=== PATIENT | female | born 1935 ===

== ENCOUNTER → 2017-11-01 | Outpatient (CLI) | payer MEDICARE ==
[~2017-11-01] MED LIST: ALBU8.5H IH; ALEN70TA43 PO; ASPI-1471 PO; BISA10SU62 RC; CA C1TAB6 PO; CA C1TAB9 PO; CALC-515 PO; ENOX40DI9 SQ; FAMO-67 PO; FOLI-68 PO; FURO-45 PO; GABA-549 PO; HYDR-4305 PO; HYDR-4309 PO; L. A1CAP5 PO; LEVO75TA73 PO; MAGN400C PO; METO25TA91 PO; MULT1CAP59 PO; ONDA4TAB PO; SERT-184 PO; UMEC1DIS PO; VANC125C3 PO
[2017-11-01 15:51] LABS: PLATELET COUNT, AUTOMATED 224 K/uL (150-450)
== END ==
LOC: LAB 15:26
PROVIDERS: ATTEND Internal Medicine
DX: I48.91 Unspecified atrial fibrillation (principal); Z86.79 Personal history of other diseases of the circulatory system; E03.9 Hypothyroidism, unspecified; E87.5 Hyperkalemia
CPT/HCPCS: 36415; 82040; 82247; 82310; 82374; 82435; 82565; 82947; 83735; 84075; 84132; 84155; 84295; 84443; 84450; 84460; 84520; 85025

== ENCOUNTER → 2017-11-07 | Outpatient (CLI) | payer MEDICARE ==
[2017-11-07 10:50] LABS: PLATELET COUNT, AUTOMATED 196 K/uL (150-450)
== END ==
LOC: LAB 10:33
PROVIDERS: ATTEND Internal Medicine
DX: J44.9 Chronic obstructive pulmonary disease, unspecified (principal); E87.5 Hyperkalemia; I48.91 Unspecified atrial fibrillation
CPT/HCPCS: 36415; 82040; 82247; 82310; 82374; 82435; 82565; 82947; 84075; 84132; 84155; 84295; 84450; 84460; 84520; 85025

== ENCOUNTER → 2017-11-27 | Outpatient (CLI) | payer MEDICARE ==
[~2017-11-27] MED LIST changes: +FLU180SY11 IM; +PNEU0.5D3 IM
== END ==
LOC: LAB 14:18
PROVIDERS: ATTEND Internal Medicine
DX: E03.9 Hypothyroidism, unspecified (principal); Z85.3 Personal history of malignant neoplasm of breast; J44.9 Chronic obstructive pulmonary disease, unspecified; M81.0 Age-related osteoporosis without current pathological fracture
CPT/HCPCS: 36415; 82040; 82247; 82306; 82310; 82374; 82435; 82565; 82947; 84075; 84132; 84155; 84295; 84450; 84460; 84520

== ENCOUNTER → 2017-12-04 | Outpatient (CLI) | payer MEDICARE ==
--- NOTE | 2017-12-04 10:45 | RADIOLOGY IMAGING REPORT ---
FACILITY: [facility] PATIENT NAME: Lizabeth Whiting : 1935 MR: [id number] V: [id number] EXAM DATE: ORDERING PHYSICIAN: RAMOS HERNANDEZ TECHNOLOGIST: Location: [facility] [place] Patient: Lizabeth Whiting : 1935 Visit/Account:[id number] Date of Sevice: 12/04/2017 KIDNEYS HISTORY: see dx COMPARISON: None. FINDINGS: Kidneys: Right kidney- 8.2 cm in length with a simple cyst in the lower pole, 2 cm. There is no suspicious ma ss, calcification, or hydronephrosis.. Left kidney- 8.7 cm in length with a simple cyst in the lower pole, 1.1 cm. There is no suspicious m ass, calcification, or hydronephrosis.. Resistive index bilaterally is slightly elevated on the right side, 0.88. Resistive index on the lef t is normal. Uniform and symmetric blood flow in each kidney by Doppler ultrasound. Bladder: Normal, prevoid volume 53 mL, postvoid volume 1 mL.. Abdominal aorta and IVC: Patent by Doppler ultrasound. IMPRESSION: 1. Benign cyst in both right and left kidney. Normal cortical thickness is seen bilaterally, and no evidence of hydronephrosis. 2. Mild elevated resistive index in the right kidney. This can be seen with chronic medical renal d isease. Left kidney demonstrates normal resistive index. Report Dictated By: Preet Norris at 12/04/2017 10:37 AM Report E-Signed By: Preet Norris at 12/04/2017 10:40 AM WSN:[email or web address]
== END ==
LOC: US 00:32
PROVIDERS: ATTEND Internal Medicine
DX: N28.1 Cyst of kidney, acquired (principal)
CPT/HCPCS: 76705

== ENCOUNTER → 2017-12-18 | Outpatient (CLI) | payer MEDICARE ==
[~2017-12-18] MED LIST changes: -HYDR-4305 PO; -HYDR-4309 PO; +HYDR-627 PO; +HYDR-653 PO
== END ==
LOC: LAB 13:58
PROVIDERS: ATTEND Internal Medicine
DX: N17.9 Acute kidney failure, unspecified (principal)
CPT/HCPCS: 36415; 81001; 82040; 82247; 82310; 82374; 82435; 82565; 82947; 84075; 84132; 84155; 84295; 84450; 84460; 84520

== ENCOUNTER → 2017-12-20 | Outpatient (CLI) | payer MEDICARE | LOC: RESP 00:18 | PROVIDERS: ATTEND Physician Assistant Medical | DX: R41.3 Other amnesia (principal); Z86.19 Personal history of other infectious and parasitic diseases | CPT/HCPCS: 95819 ==

== ENCOUNTER 2017-12-21 15:09 | Emergency (ER) | payer MEDICARE ==
[2017-12-21] MEDS ORDERED: NS(*) 0.9% 1000 ML BAG 1,000 ML IV ONE (15:25)
--- NOTE | 2017-12-21 15:31 | ER Report ---
History and Physical Time Seen By MD: 15:03 Hx. of Stated Complaint: PT REPORTS HAVING DIARRHEA LAST NIGHT. REPORTS THAT SHE INJURED HER RIGHT HIP LAST NIGHT AT WELL. HAD RIGHT HIP REPLACEMENT IN AUGUST OF 2017 HPI/ROS CHIEF COMPLAINT: DIARRHEA, NEAR SYNCOPAL HISTORY OF PRESENT ILLNESS: Pt is here for evaluation of diarrhea, fever, weakness and near syncopal episode. Pt was fine yesterday but last night started with diarrhea and fever. Pt has dementia. Pts daughter found her at 12am in the shower with her shirt on and water running. Pt had had an episode of diarrhea. Daughter cleaned her up and at 6am had another episode and when the daughter had her up to clean she almost passed out. Daughter caught her on her way down. Did not hit her had. landed on right hip and c/o of pain. 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 Pt has hx of c.diff. no recent abx. pt feels weak. no chest pain. some abd cramping. no dysuria. no known sick contacts but was at the neurology office yesterday. REVIEW OF SYSTEMS: Constitutional: +fever, no chills. Eyes: No discharge. ENT: No sore throat. Cardiovascular: No chest pain, no palpitations. Respiratory: No cough, no shortness of breath. Gastrointestinal: + abdominal pain, + diarrhea no vomiting. Genitourinary: No hematuria. Musculoskeletal: No back pain. Skin: No rashes. Neurological: No headache. Allergies: Coded Allergies: No Known Drug Allergies (Unverified , 12/21/17) Home Meds Reported Medications Calcium/Magnesium (CALCIUM MAGNESIUM TABLET) 1 Each Tablet, 1 EACH PO 11/01/17 L. Acidophilus/Bifid. Animalis (TRUNATURE DIGESTIVE PROBIOTIC) 1 Each Capsule, 1 EACH PO BID, CAPSULE 11/01/17 Aspirin (ASPIR 81) 81 Mg Tablet.dr, 1 TAB PO QDAY, TAB 11/01/17 Albuterol Sulfate 90 Mcg/Act (PROAIR HFA 90 MCG/ACT) 8.5 Gm Hfa.aer.ad, 1-2 PUFF IH 3-4XD, INHALER 11/01/17 Umeclidinium Brm/Vilanterol Tr (Anoro Ellipta 62.5-25 Mcg INH) 1 Each Disk.w.dev, PO QDAY 11/01/17 Sertraline Hcl (SERTRALINE HCL) 50 Mg Tablet, 1 TAB PO QDAY, TAB 11/01/17 Multivitamin (MULTIVITAMINS) 1 Each Capsule, 1 EACH PO QDAY, CAPSULE 11/01/17 Levothyroxine Sodium (LEVOTHYROXINE SODIUM) 75 Mcg Tablet, 75 MCG PO HS, #3 TAB 11/01/17 Folic Acid (FOLIC ACID) 1 Mg Tablet, 1 MG PO QDAY, TAB 11/01/17 Famotidine (FAMOTIDINE) 20 Mg Tablet, 20 MG PO QDAY, TAB 11/01/17 Alendronate Sodium (FOSAMAX) 70 Mg Tablet, 70 MG PO QWK, TAB 11/01/17 Gabapentin (GABAPENTIN) 300 Mg Capsule, 300 MG PO BID, CAPSULE 11/01/17 Past Medical/Surgical History pmhx: afib, copd, sleep apnea, post polio syndrome, breast ca, skin ca Pshx: appy, hyster, lumpectomy Reviewed Nurses Notes: Yes Smoking Status: Former Smoker Hx Substance Use Disorder: No Hx Alcohol Use: No Constitutional Vital Sign - Last 24 Hours 12/21/17 12/21/17 15:16 15:40 Temp 98.5 100.3 Pulse 65 Resp 20 B/P (MAP) 118/51 Pulse Ox 95 O2 Delivery Nasal Cannula Physical Exam General Appearance: The patient is alert, has no immediate need for airway protection and no signs of toxicity. Eyes: Pupils equal and round no pallor or injection, EOMI ENT: no pharyngeal erythema or exudates, Mucous membranes are moist Respiratory: There are no retractions, lungs are clear to auscultation. Cardiovascular: Regular rate and rhythm. pulses are equal and symmetrical Gastrointestinal: Abdomen is soft and non tender, no masses, bowel sounds normal, no guarding, no rigidity or rebound Neurological: Cranial nerves II-XII grossly intact, no sensory or motor loss Skin: Warm and dry, no rashes. Musculoskeletal: Neck is supple non tender, no vertebral tenderness Extremities are nontender, non swollen and have full range of motion. DIFFERENTIAL DIAGNOSIS: After history and physical exam differential diagnosis was considered for dehydration, electrolyte abnl, colitis, infection diarrhea, gastroenteritis Medical Decision Making Data Points Result Diagram: 12/21/17 1520 12/21/17 1520 Laboratory Hematology Test 12/21/17 15:12/21/17 15:40 Red Blood Count 4.26 M/uL (4.17-5.56) Mean Corpuscular Volume 86.0 fL (80.0-96.0) Mean Corpuscular Hemoglobin 28.4 pg (26.0-33.0) Mean Corpuscular Hemoglobin Concent 33.1 g/dL (32.0-36.0) Red Cell Distribution Width 15.0 % (11.5-14.5) Mean Platelet Volume 7.8 fL (7.2-11.1) Neutrophils (%) (Auto) 84.0 % (39.4-72.5) Lymphocytes (%) (Auto) 8.1 % (17.6-49.6) Monocytes (%) (Auto) 6.8 % (4.1-12.4) Eosinophils (%) (Auto) 0.7 % (0.4-6.7) Basophils (%) (Auto) 0.4 % (0.3-1.4) Nucleated RBC Relative Count (auto) 0.0 /100WBC Neutrophils # (Auto) 5.0 K/uL (2.0-7.4) Lymphocytes # (Auto) 0.5 K/uL (1.3-3.6) Monocytes # (Auto) 0.4 K/uL (0.3-1.0) Eosinophils # (Auto) 0.0 K/uL (0.0-0.5) Basophils # (Auto) 0.0 K/uL (0.0-0.1) Nucleated RBC Absolute Count (auto) 0.00 K/uL Sodium Level 143 mmol/L (137-145) Potassium Level 3.8 mmol/L (3.5-5.0) Chloride Level 106 mmol/L (98-107) Carbon Dioxide Level 26 mmol/L (22-31) Blood Urea Nitrogen 41 mg/dl (7-18) Creatinine 1.50 mg/dl (0.52-1.04) Glomerular Filtration Rate Calc 33.3 Random Glucose 115 mg/dl (75-110) Calcium Level 9.6 mg/dl (8.4-10.2) Total Bilirubin 0.3 mg/dl (0.2-1.3) Aspartate Amino Transf (AST/SGOT) 26 U/L (0-35) Alanine Aminotransferase (ALT/SGPT) 20 U/L (0-56) Alkaline Phosphatase 51 U/L (0-126) Total Protein 6.9 g/dl (6.3-8.2) Albumin 4.1 g/dl (3.5-5.0) Urine Color Yellow Urine Clarity Slightly-cloudy Urine pH 5.0 pH (4.8-9.5) Urine Specific [place] 1.017 Urine Protein Negative mg/dL (NEGATIVE) Urine Glucose (UA) Negative mg/dL (NEGATIVE) Urine Ketones Negative mg/dL (NEGATIVE) Urine Blood Negative (NEGATIVE) Urine Nitrite Negative (NEGATIVE) Urine Bilirubin Negative (NEGATIVE) Urine Urobilinogen Negative mg/dL (0.2-1.9) Urine Leukocyte Esterase Negative (NEGATIVE) Urine RBC <1 /HPF (0-2/HPF) Urine WBC 1 /HPF (0-5/HPF) Urine Squamous Epithelial Cells None /LPF (NONE-FEW) Urine Bacteria Negative /HPF (NONE-FEW) Urine Hyaline Casts Many /LPF (NONE-FEW) Urine Mucus Few /HPF (NONE-FEW) Chemistry Test 12/21/17 15:20 12/21/17 15:40 White Blood Count 6.0 k/uL (4.5-11.0) Red Blood Count 4.26 M/uL (4.17-5.56) Hemoglobin 12.1 g/dL (12.0-16.0) Hematocrit 36.6 % (34.0-47.0) Mean Corpuscular Volume 86.0 fL (80.0-96.0) Mean Corpuscular Hemoglobin 28.4 pg (26.0-33.0) Mean Corpuscular Hemoglobin Concent 33.1 g/dL (32.0-36.0) Red Cell Distribution Width 15.0 % (11.5-14.5) Platelet Count 197 K/uL (150-450) Mean Platelet Volume 7.8 fL (7.2-11.1) Neutrophils (%) (Auto) 84.0 % (39.4-72.5) Lymphocytes (%) (Auto) 8.1 % (17.6-49.6) Monocytes (%) (Auto) 6.8 % (4.1-12.4) Eosinophils (%) (Auto) 0.7 % (0.4-6.7) Basophils (%) (Auto) 0.4 % (0.3-1.4) Nucleated RBC Relative Count (auto) 0.0 /100WBC Neutrophils # (Auto) 5.0 K/uL (2.0-7.4) Lymphocytes # (Auto) 0.5 K/uL (1.3-3.6) Monocytes # (Auto) 0.4 K/uL (0.3-1.0) Eosinophils # (Auto) 0.0 K/uL (0.0-0.5) Basophils # (Auto) 0.0 K/uL (0.0-0.1) Nucleated RBC Absolute Count (auto) 0.00 K/uL Glomerular Filtration Rate Calc 33.3 Calcium Level 9.6 mg/dl (8.4-10.2) Total Bilirubin 0.3 mg/dl (0.2-1.3) Aspartate Amino Transf (AST/SGOT) 26 U/L (0-35) Alanine Aminotransferase (ALT/SGPT) 20 U/L (0-56) Alkaline Phosphatase 51 U/L (0-126) Total Protein 6.9 g/dl (6.3-8.2) Albumin 4.1 g/dl (3.5-5.0) Urine Color Yellow Urine Clarity Slightly-cloudy Urine pH 5.0 pH (4.8-9.5) Urine Specific [place] 1.017 Urine Protein Negative mg/dL (NEGATIVE) Urine Glucose (UA) Negative mg/dL (NEGATIVE) Urine Ketones Negative mg/dL (NEGATIVE) Urine Blood Negative (NEGATIVE) Urine Nitrite Negative (NEGATIVE) Urine Bilirubin Negative (NEGATIVE) Urine Urobilinogen Negative mg/dL (0.2-1.9) Urine Leukocyte Esterase Negative (NEGATIVE) Urine RBC <1 /HPF (0-2/HPF) Urine WBC 1 /HPF (0-5/HPF) Urine Squamous Epithelial Cells None /LPF (NONE-FEW) Urine Bacteria Negative /HPF (NONE-FEW) Urine Hyaline Casts Many /LPF (NONE-FEW) Urine Mucus Few /HPF (NONE-FEW) Urinalysis Test 12/21/17 15:40 Urine Color Yellow Urine Clarity Slightly-cloudy Urine pH 5.0 pH (4.8-9.5) Urine Specific [place] 1.017 Urine Protein Negative mg/dL (NEGATIVE) Urine Glucose (UA) Negative mg/dL (NEGATIVE) Urine Ketones Negative mg/dL (NEGATIVE) Urine Blood Negative (NEGATIVE) Urine Nitrite Negative (NEGATIVE) Urine Bilirubin Negative (NEGATIVE) Urine Urobilinogen Negative mg/dL (0.2-1.9) Urine Leukocyte Esterase Negative (NEGATIVE) Urine RBC <1 /HPF (0-2/HPF) Urine WBC 1 /HPF (0-5/HPF) Urine Squamous Epithelial Cells None /LPF (NONE-FEW) Urine Bacteria Negative /HPF (NONE-FEW) Urine Hyaline Casts Many /LPF (NONE-FEW) Urine Mucus Few /HPF (NONE-FEW) EKG/Imaging EKG Interpretation nsr @ 80 wiht first degree av block and atrial enlargement ED Course/Re-evaluation Clinical Indication for ER IV: Hydration, IV Access ED Course 12/21/2017 4:35:24 pm Pt has not given us a stool sample. Pt asking to eat crackers and cheese and feels that may help her go. 12/21/2017 4:53:57 pm Pts daughter is nervous about going home without stool samples being sent. Spoke with hospitalist and pts labs appear well and not sure if admission is warranted. will try pts pcp. 12/21/2017 5:01:54 pm Spoke with Pio Hi who states that patient can be seen by him in office if they call the office at 8am tomorrow. 12/21/2017 5:24:48 pm Pt ate jello and crackers without difficulty. second blood culture drawn. will send home with stool cultures to obtain and she needs to call pcp at 8 am for follow up. Decision to Disposition Date: Dec 21, 2017 Decision to Disposition Time: 17:25 Depart Departure Latest Vital Signs Vital Signs Date Time Temp Pulse Resp B/P (MAP) Pulse Ox O2 Delivery O2 Flow Rate FiO2 12/21/17 15:40 100.3 12/21/17 15:16 65 20 118/51 95 Nasal Cannula Impression: Primary Impression: Diarrhea Condition: Condition Unchanged Disposition: HOME OR SELF-CARE Referrals: RAMOS SUERO MD (PCP) 1 Day Call at 8am to arrange a time to be seen tomorrow. Patient Instructions: Acute Diarrhea (ED) Additional Instructions: Your labs did not show you to be dehydrated. We did send off blood cultures which if any bacteria grows we will let you know. We are sending you home with stool collecting kit. If you have an episode of diarrhea please bring specimen to be tested. I spoke with Dr. Suero. You are to call his office at 8am. If you still feel poorly he will get you into the office tomorrow morning to be rechecked. Use your walker . Problem Qualifiers Primary Impression: Diarrhea Diarrhea type: unspecified type Qualified Codes: R19.7 - Diarrhea, unspecified GEO BAY DO Dec 21, 2017 15:31
[2017-12-21 15:35] LABS: PLATELET COUNT, AUTOMATED 197 K/uL (150-450)
--- NOTE | 2017-12-21 16:26 | RADIOLOGY IMAGING REPORT ---
FACILITY: [facility] - [place] PATIENT NAME: Lizabeth Whiting : 1935 MR: [id number] V: [id number] EXAM DATE: ORDERING PHYSICIAN: GEO BAY TECHNOLOGIST: Location: Patient: Lizabeth Whiting : 1935 Visit/Account:[id number] Date of Sevice: 12/21/2017 Exam type: HIP RIGHT History: Fall, right hip pain Comparison: None. Findings: Three views of the right hip demonstrate a right hip arthroplasty appears in good anatomic alignment. No evidence of acute fracture or dislocation involving the right hip. No radiographic evidence of prosthetic loosening. Incidentally noted are orthopedic screws transversing an old left hip fracture and postsurgical changes from posterior lumbar interbody fusion of the lower lumbosacral spine and r ight SI joint IMPRESSION: 1. Extensive postoperative changes as described above although no evidence of acute fracture-disloca tion involving the right hip Report Dictated By: Estela Miranda MD at 12/21/2017 4:22 PM Report E-Signed By: Estela Miranda MD at 12/21/2017 4:23 PM WSN:[email or web address]
[2017-12-21 17:30] VITALS: BP 126/58
--- NOTE | 2017-12-21 17:43 | EKG ---
FACILITY: [facility] - [place] PATIENT NAME: BRIE ADAMES : [id number] MR: [id number] V: [id number] EXAM DATE: ORDERING PHYSICIAN: GEO BAY TECHNOLOGIST: IRON Test Reason : FEVER Blood Pressure : / mmHG Vent. Rate : 082 BPM Atrial Rate : 082 BPM P-R Int : 212 ms QRS Dur : 074 ms QT Int : 418 ms P-R-T Axes : 072 010 008 degrees QTc Int : 488 ms Sinus rhythm with marked sinus arrhythmia with 1st degree AV block Borderline ECG No previous ECGs available Confirmed by Dale Camarillo ([id number]) on 12/21/2017 11:00:31 PM Referred By: SHANIQUE Confirmed By:Dale Garcia
[2017-12-25] MEDS ORDERED: VITA-175 PO (10:45)
[2017-12-25] MEDS ORDERED: FOLI-68 PO (10:45)
== END 2017-12-21 17:46 | disposition home or self-care (01) ==
LOC: ER 15:14
DX: R19.7 Diarrhea, unspecified (principal); I44.0 Atrioventricular block, first degree
CPT/HCPCS: 36415; 73502; 81001; 85025; 87040; 87045; 87324; 87449; 93005; 99284; A4353; J7030; 82040; 82247; 82310; 82374; 82435; 82565; 82947; 84075; 84132; 84155; 84295; 84450; 84460; 84520

== ENCOUNTER → 2017-12-28 | Outpatient (CLI) | payer MEDICARE ==
[~2017-12-28] MED LIST changes: +VITA-175 PO
--- NOTE | 2017-12-28 14:52 | RADIOLOGY IMAGING REPORT ---
FACILITY: [facility] - [place] PATIENT NAME: Lizabeth Whiting : 1935 MR: [id number] V: [id number] EXAM DATE: [id number] ORDERING PHYSICIAN: FRANCIS COLE TECHNOLOGIST: Location: [place] [facility] - [place] Patient: Lizabeth Whiting : 1935 Visit/Account:[id number] Date of Sevice: 12/28/2017 EXAMINATION: MRI brain without IV contrast HISTORY: Memory loss, personal history of sepsis. COMPARISON: None. TECHNIQUE: Multi-planar, multi-sequence brain MRI was performed without IV contrast. FINDINGS: Brain volume: Mild generalized atrophy with associated concordant prominence of the ventricular syst em. Sagittal midline structures: Normal. Ventricles: Normal. Acute ischemic changes: No diffusion restriction present to suggest acute ischemia. Hemorrhage: No acute hemorrhage or hemosiderin staining. Masses/edema: None. Mukherjee-white: Negative. White matter: Patchy T2/FLAIR hyperintensities in the mirian and deep white matter bilaterally. Vessels: Normal. Extra-axial: None. Calvarium/scalp: Negative. Skull base: Negative. Visualized sinuses/orbits: Minimal mucosal thickening in the bilateral ethmoid air cells. Mild nasa l septal deviation to the right. Previous lens surgery bilaterally. Visualized upper neck: Mild joint space narrowing of the atlantoaxial joint with small pannus. No si gnificant central canal or foraminal stenosis. IMPRESSION: 1. No acute infarct, hemorrhage or intracranial mass lesion. 2. Mild generalized atrophy is age appropriate. 3. Moderate nonspecific white matter disease is suspicious for chronic small vessel ischemia. This could contribute to multi-infarct dementia, although it is not specific. 4. 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 This could be secon james to rheumatoid arthritis, osteoarthritis or CPPD. Report Dictated By: Jessi Mclain MD at 12/28/2017 2:41 PM Report E-Signed By: Jessi Mclain MD at 12/28/2017 2:48 PM WSN:[id number]
== END ==
LOC: MRI 00:32
PROVIDERS: ATTEND Physician Assistant Medical
DX: J34.2 Deviated nasal septum (principal); R90.82 White matter disease, unspecified; M19.91 Primary osteoarthritis, unspecified site; Z98.42 Cataract extraction status, left eye; Z98.41 Cataract extraction status, right eye
CPT/HCPCS: 70551

== ENCOUNTER → 2018-02-13 | Outpatient (CLI) | payer MEDICARE ==
[~2018-02-13] MED LIST changes: +DULO30CA35 PO; +GABA-503 PO; +LEVO50TA86 PO; +TRAM-420 PO
[2018-02-13 12:09] LABS: PLATELET COUNT, AUTOMATED 204 K/uL (150-450)
--- NOTE | 2018-02-13 13:10 | RADIOLOGY IMAGING REPORT ---
FACILITY: [facility] PATIENT NAME: Lizabeth Whiting : 1935 MR: [id number] V: [id number] EXAM DATE: ORDERING PHYSICIAN: RAMOS HERNANDEZ TECHNOLOGIST: Location: [facility] - [place], [place] Patient: Lizabeth Whiting : 1935 Visit/Account:[id number] Date of Sevice: 02/13/2018 Exam type: HIP LEFT History: back pain, hip pain Comparison: December 21, 2017. Findings: Two views the left hip demonstrate orthopedic screws transfixing the old left hip fracture. These ap pear relatively unchanged when compared to the AP pelvis from December 21, 2017. There is mild to mod erate joint space narrowing at the left hip joint and subchondral cystic erosions also similar to the prior study Also on the AP view of the pelvis is a right hip arthroplasty. Postoperative changes o f the lower lumbar spine right SI joint also appear similar on the AP view IMPRESSION: 1. Postsurgical changes of both hip joints and lower lumbar spine and right SI joint appears similar to the prior study Multiple moderate joint space narrowing and subchondral cystic erosions involving the left hip also a ppears similar Report Dictated By: Estela Miranda MD at 02/13/2018 1:04 PM Report E-Signed By: Estela Miranda MD at 02/13/2018 1:06 PM WSN:[email or web address]
--- NOTE | 2018-02-13 13:32 | RADIOLOGY IMAGING REPORT ---
[place] [facility] [place]: Lizabeth Whiting : 1935 MR: [id number] V: [id number] EXAM DATE: ORDERING PHYSICIAN: RAMOS HERNANDEZ TECHNOLOGIST: Location: [facility] Patient: Lizabeth Whiting : 1935 Visit/Account:[id number] Date of Sevice: 02/13/2018 Exam type: LUMBAR SPINE 2 OR 3 VIEW History: back pain Comparison: None. Findings: AP and lateral views lumbar spine were submitted.. 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 There is post erior lumbar interbody fusion with bilateral pedicle screws at L1, L2 and L5. There is a left pedicl e screw at L3 and a right pedicle screw at L4. There are posterior fixation rods. The posterior Sta tion gar[place] on the right is disconnected at the level of L3-4. There are intervertebral disc spacers. There are also screws from anterior fusion at L5-S1. An additional screw traverses the right SI join t. Incompletely imaged is a right hip arthroplasty. There is a gentle dextroconvex scoliosis presen t. Moderate vascular calcination occasions are present in the abdominal aorta and branch vessels IMPRESSION: 1. Extensive postoperative changes of the lumbar spine and right SI joint as described above Report Dictated By: Estela Miranda MD at 02/13/2018 1:06 PM Report E-Signed By: Estela Miranda MD at 02/13/2018 1:28 PM WSN:[email or web address]
== END ==
LOC: LAB 11:14
PROVIDERS: ATTEND Internal Medicine
DX: N18.9 Chronic kidney disease, unspecified (principal); Z85.3 Personal history of malignant neoplasm of breast; E03.9 Hypothyroidism, unspecified; R41.3 Other amnesia; M54.5 Low back pain; M25.551 Pain in right hip
CPT/HCPCS: 36415; 72100; 82040; 82247; 82310; 82374; 82435; 82565; 82947; 84075; 84132; 84155; 84295; 84443; 84450; 84460; 84520; 84550; 85025

== ENCOUNTER → 2018-04-13 | Outpatient (CLI) | payer MEDICARE ==
[~2018-04-13] MED LIST changes: -GABA-503 PO; +GABA-533 PO; +OXYC5TAB38 PO
[2018-04-13 11:28] LABS: PLATELET COUNT, AUTOMATED 179 K/uL (150-450)
--- NOTE | 2018-04-14 07:57 | EKG ---
FACILITY: [facility] [place] PATIENT NAME: BRIE ADAMES : [id number] MR: [id number] V: [id number] EXAM DATE: ORDERING PHYSICIAN: RAMOS HERNANDEZ TECHNOLOGIST: CHERIE Test Reason : DIZZINESS Blood Pressure : / mmHG Vent. Rate : 063 BPM Atrial Rate : 063 BPM P-R Int : 206 ms QRS Dur : 078 ms QT Int : 436 ms P-R-T Axes : 074 051 051 degrees QTc Int : 446 ms Sinus rhythm with marked sinus arrhythmia Otherwise normal ECG Referred By: ALYCIA Confirmed By:
== END ==
LOC: LAB 10:34
PROVIDERS: ATTEND Internal Medicine
DX: R41.3 Other amnesia (principal); E03.9 Hypothyroidism, unspecified; N18.9 Chronic kidney disease, unspecified; E72.19 Other disorders of sulfur-bearing amino-acid metabolism; R42 Dizziness and giddiness; R41.0 Disorientation, unspecified
CPT/HCPCS: 36415; 81001; 82040; 82247; 82310; 82374; 82435; 82565; 82607; 82746; 82947; 83090; 84075; 84132; 84155; 84295; 84439; 84443; 84450; 84460; 84520; 85025

== ENCOUNTER → 2018-04-18 | Outpatient (CLI) | payer MEDICARE ==
--- NOTE | 2018-04-18 12:32 | RADIOLOGY IMAGING REPORT ---
FACILITY: [facility] [place] PATIENT NAME: Lizabeth Whiting : 1935 MR: [id number] V: [id number] EXAM DATE: ORDERING PHYSICIAN: RAMOS HERNANDEZ TECHNOLOGIST: Location: [facility] - [place] Patient: Lizabeth Whiting : 1935 Visit/Account:[id number] Date of Sevice: 04/18/2018 DEXA Scan Clinical history: screening. Additional history: Patient has orthopedic hardware in the lumbar spine and both hips. Comparison: None. Left FOREARM: The bone mineral density (BMD) measured in the ULTRA DISTAL left forearm, where trabecular bone predo minates, correlates with a Z-score of 1.1 and a T-score of -1.8 which is osteopenic as defined by the World Health Organization. The corresponding risk of fracture in the distal forearm is moderately increased compared with a young adult reference population. The bone mineral density (BMD) in the MIDSHAFT of the forearm, where cortical bone predominates, bay elates with a Z-score of 1.3 and a T-score of -1.6 which is osteopenic as defined by the World Health Organization. The corresponding risk of fracture in the midshaft of the forearm is moderately increa sed compared with a young adult reference population. Impression: Left forearm: Osteopenic The next DEXA scan of this patient should include the following sites: Left forearm. FRAX? WHO Fracture Risk Assessment Tool link: <http://www.shef.ac.uk/FRAX/tool.jsp?locationValue=9> PLEASE NOTE: 1) The World Health Organization defines low BMD as follows: T-score Normal > -1 Osteopenia < -1 and > -2.5 Osteoporosis < -2.5 without fractures Established osteoporosis < -2.5 with fractures 2) In general, you may wish to consider: Diagnosis Treatment Follow-up DEXA Normal BMD Prevention 2-3 years Osteopenia Prevention/therapy 1-2 years Osteoporosis Therapy Yearly 3) Fracture risk estimated from the T-score is more accurate for vertebral fractures (often spontane ous) than for hip fractures. Report Dictated By: Romero Schaefer MD at 04/18/2018 12:25 PM Report E-Signed By: Romero Schaefer MD at 04/18/2018 12:28 PM WSN:[email or web address]
== END ==
LOC: RAD 01:26
PROVIDERS: ATTEND Internal Medicine
DX: M85.88 Other specified disorders of bone density and structure, other site (principal)
CPT/HCPCS: 77080

== ENCOUNTER → 2018-05-10 | Outpatient (CLI) | payer MEDICARE ==
[~2018-05-10] MED LIST changes: +AZIT-17 PO; +PANT40TA65 PO; +PRED20TA6 PO; -VANC125C3 PO; +VANC125C4 PO
--- NOTE | 2018-05-10 16:07 | RADIOLOGY IMAGING REPORT ---
FACILITY: [facility] PATIENT NAME: Lizabeth Whiting : 1935 MR: [id number] V: [id number] EXAM DATE: ORDERING PHYSICIAN: RAMOS HERNANDEZ [place]CHNOLOGIST: [place] [facility] [place] Wh[place] : 1935 Visit/Account:[id number] Date of Sevice: 05/10/2018 EXAMINATION: PA and Lateral Chest 05/10/2018 3:09 PM HISTORY: cough COMPARISON: None FINDINGS: Cardiomediastinal contours: Normal heart size. Atherosclerotic aorta. Lungs and pleura: Lungs are hyperinflated with emphysematous appearance. Bilateral effusions, at [address] st on the left. No overt parenchymal edema. No significant focal infiltrate/consolidation. Bones/soft tissues: Right axillary clips with diminished right wrist: Likely reflecting lumpectomy. Subtle levoscoliotic curvature. Partially imaged lumbar fusion. IMPRESSION: 1. Hyperinflated lungs with emphysematous appearance. 2. Pleural effusions. No overt pulmonary edema. Report Dictated By: Preet Multani MD at 05/10/2018 4:00 PM Report E-Signed By: Preet Multani MD at 05/10/2018 4:02 PM WSN:[email or web address]
== END ==
LOC: RAD 15:05
PROVIDERS: ATTEND Internal Medicine
DX: J90 Pleural effusion, not elsewhere classified (principal)
CPT/HCPCS: 71046

== ENCOUNTER → 2018-06-13 | Outpatient (CLI) | payer MEDICARE ==
[2018-06-13 11:53] LABS: PLATELET COUNT, AUTOMATED 280 K/uL (150-450)
== END ==
LOC: LAB 11:07
PROVIDERS: ATTEND Nurse Practitioner Primary Care
DX: R41.0 Disorientation, unspecified (principal)
CPT/HCPCS: 36415; 81001; 82040; 82247; 82310; 82374; 82435; 82565; 82947; 84075; 84132; 84155; 84295; 84450; 84460; 84520; 85025

== ENCOUNTER 2018-06-22 11:32 | Emergency (ER) | payer MEDICARE ==
[2018-06-22] MEDS ORDERED: ASPIRIN 81 MG CHEW PO ONE (11:50)
--- NOTE | 2018-06-22 11:50 | ER Report ---
History and Physical Time Seen By MD: 11:35 Hx. of Stated Complaint: chest pain mid to L chest and radiating into r jaw onset 830am, dizzy, reduced around 10am HPI/ROS CHIEF COMPLAINT: Chest pain HISTORY OF PRESENT ILLNESS: 83-year-old female history of COPD comes emergency Department today with an episode of chest pain. Patient states that this started when he threw this morning lasted about an hour or so and resolved. Patient states was parasternal nonradiating but did have a little bit of jaw discomfort she's had multiple episodes similar to this in the past she believes to be indigestion she's been seen by her doctor for this as well has not had a stress test and echocardiogram done patient states that he feels like of a gassy sensation in the center part of her chest and then about an hour so goes away h owever today it was little bit polygraph examiner than normal and her daughter was with her and felt concerned brought her to the emergency department. Patient has no additional symptoms other than her baseline dizziness she's had dizziness for many years and this is been unchanged and unresolved. Patient on arrival here is completely pain-free and otherwise asymptomatic pain stopped around 10:30 this morning however her daughter felt necessary to get her evaluated. Patient on arrival has no symptoms other than her baseline dizziness. REVIEW OF SYSTEMS: Respiratory: No cough, no dyspnea. Cardiovascular: As pain or palpitation Gastrointestinal: No vomiting, no abdominal pain. Musculoskeletal: No back pain. Remainder of the 14 system rev: Yes Allergies: Coded Allergies: No Known Drug Allergies (Unverified , 12/21/17) Home Meds Active Scripts Levothyroxine Sodium (LEVOTHYROXINE SODIUM) 50 Mcg Tablet, 50 MCG PO QDAY, #90 TAB 3 Refills Prov:RAMOS HERNANDEZ MD 05/31/18 Oxycodone Hcl (OXYCODONE HCL) 5 Mg Tablet, 5 MG PO BID PRN for severe pain, #40 TAB Prov:RAMOS HERNANDEZ MD 04/13/18 Tramadol Hcl (TRAMADOL HCL) 50 Mg Tablet, 50 MG PO 2-3XD, #90 TAB 4 Refills Prov:RAMOS HERNANDEZ MD 02/13/18 Gabapentin (GABAPENTIN) 600 Mg Tablet, 600 MG PO 2-3XD, #270 TAB 1 Refill Prov:RAMOS HERNANDEZ MD 02/13/18 Folic Acid (FOLIC ACID) 1 Mg Tablet, 1 MG PO QDAY, #90 TAB 3 Refills Prov:RAMOS HERNANDEZ MD 12/25/17 Reported Medications Furosemide (LASIX) 20 Mg Tablet, 1 TAB PO Q8H, TAB 06/22/18 Vitamin B Complex (B COMPLEX) 1 Each Tablet, 1 EACH PO 12/25/17 Calcium/Magnesium (CALCIUM MAGNESIUM TABLET) 1 Each Tablet, 1 EACH PO 11/01/17 L. Acidophilus/Bifid. Animalis (TRUNATURE DIGESTIVE PROBIOTIC) 1 Each Capsule, 1 EACH PO BID, CAPSULE 11/01/17 Aspirin (ASPIR 81) 81 Mg Tablet.dr, 1 TAB PO QDAY, TAB 11/01/17 Albuterol Sulfate 90 Mcg/Act (PROAIR HFA 90 MCG/ACT) 8.5 Gm Hfa.aer.ad, 1-2 PUFF IH 3-4XD, INHALER 11/01/17 Umeclidinium Brm/Vilanterol Tr (Anoro Ellipta 62.5-25 Mcg INH) 1 Each Disk.w.d ev, PO QDAY 11/01/17 Sertraline Hcl (SERTRALINE HCL) 50 Mg Tablet, 1 TAB PO QDAY, TAB 11/01/17 Multivitamin (MULTIVITAMINS) 1 Each Capsule, 1 EACH PO QDAY, CAPSULE 11/01/17 Reviewed Nurses Notes: Yes Old Medical Records Reviewed: Yes Smoking Status: Former Smoker Hx Substance Use Disorder: No Hx Alcohol Use: No Constitutional Vital Sign - Last 24 Hours 06/22/18 06/22/18 06/22/18 06/22/18 11:37 11:38 11:43 11:47 Temp 98.1 Pulse 68 58 Resp 14 0 B/P (MAP) 142/69 (93) 142/69 Pulse Ox 94 97 O2 Delivery Room Air O2 Flow Rate 2.0 06/22/18 06/22/18 06/22/18 06/22/18 12:00 12:02 12:17 12:30 Pulse ??? 58 B/P (MAP) ???/??? (0567) 145/57 (86) Pulse Ox 99 06/22/18 12:32 Pulse 59 Pulse Ox 98 Physical Exam General Appearance: The patient is alert, has no immediate need for airway protection and no current signs of toxicity. [ ] Eyes: Pupils equal and round no injection. Respiratory: Chest is non tender, lungs are clear to auscultation. Cardiac: regular rate and rhythm [ ] Gastrointestinal: Abdomen is soft and non tender, no masses, bowel sounds normal. Musculoskeletal: Neck: Neck is supple and non tender. Extremities have full range of motion and are non tender. Skin: No rashes or lesions. [ ] DIFFERENTIAL DIAGNOSIS: After history and physical exam differential diagnosis was considered for myocardial infarction and STEMI aortic dissection pulmonary embolus indigestion and gastroesophageal reflux Medical Decision Making Data Points Result Diagram: 06/22/18 1150 06/22/18 1150 Laboratory Hematology Test 06/22/18 11:50 06/22/18 13:05 Red Blood Count 4.19 M/uL (4.17-5.56) Mean Corpuscular Volume 89.5 fL (80.0-96.0) Mean Corpuscular Hemoglobin 29.4 pg (26.0-33.0) Mean Corpuscular Hemoglobin Concent 32.8 g/dL (32.0-36.0) Red Cell Distribution Width 14.2 % (11.5-14.5) Mean Platelet Volume 8.0 fL (7.2-11.1) Neutrophils (%) (Auto) 76.6 % (39.4-72.5) Lymphocytes (%) (Auto) 14.4 % (17.6-49.6) Monocytes (%) (Auto) 7.3 % (4.1-12.4) Eosinophils (%) (Auto) 1.2 % (0.4-6.7) Basophils (%) (Auto) 0.5 % (0.3-1.4) Nucleated RBC Relative Count (auto) 0.1 /100WBC Neutrophils # (Auto) 4.4 K/uL (2.0-7.4) Lymphocytes # (Auto) 0.8 K/uL (1.3-3.6) Monocytes # (Auto) 0.4 K/uL (0.3-1.0) Eosinophils # (Auto) 0.1 K/uL (0.0-0.5) Basophils # (Auto) 0.0 K/uL (0.0-0.1) Nucleated RBC Absolute Count (auto) 0.01 K/uL Peripheral Blood Smear No Y/N D-Dimer Quantitative (PE/DVT) 1.97 ug/ml (0-0.50) Sodium Level 140 mmol/L (137-145) Potassium Level 4.4 mmol/L (3.5-5.0) Chloride Level 104 mmol/L (98-107) Carbon Dioxide Level 29 mmol/L (22-31) Blood Urea Nitrogen 52 mg/dl (7-18) Creatinine 1.40 mg/dl (0.52-1.04) Glomerular Filtration Rate Calc 36.0 Random Glucose 92 mg/dl (75-110) Calcium Level 9.8 mg/dl (8.4-10.2) Total Bilirubin 0.2 mg/dl (0.2-1.3) Aspartate Amino Transf (AST/SGOT) 26 U/L (0-35) Alanine Aminotransferase (ALT/SGPT) 18 U/L (0-56) Alkaline Phosphatase 54 U/L (0-126) Troponin I < 0.012 ng/ml Total Protein 6.6 g/dl (6.3-8.2) Albumin 4.2 g/dl (3.5-5.0) Urine Color Yellow Urine Clarity Slightly-cloudy Urine pH 6.0 pH (4.8-9.5) Urine Specific [place] 1.036 Urine Protein Negative mg/dL (NEGATIVE) Urine Glucose (UA) Negative mg/dL (NEGATIVE) Urine Ketones Negative mg/dL (NEGATIVE) Urine Blood Negative (NEGATIVE) Urine Nitrite Negative (NEGATIVE) Urine Bilirubin Negative (NEGATIVE) Urine Urobilinogen Negative mg/dL (0.2-1.9) Urine Leukocyte Esterase Negative (NEGATIVE) Urine RBC <1 /HPF (0-2/HPF) Urine WBC <1 /HPF (0-5/HPF) Urine Squamous Epithelial Cells None /LPF (NONE-FEW) Urine Bacteria Negative /HPF (NONE-FEW) Urine Mucus None /HPF (NONE-FEW) Chemistry Test 06/22/18 11:50 06/22/18 13:05 White Blood Count 5.7 k/uL (4.5-11.0) Red Blood Count 4.19 M/uL (4.17-5.56) Hemoglobin 12.3 g/dL (12.0-16.0) Hematocrit 37.5 % (34.0-47.0) Mean Corpuscular Volume 89.5 fL (80.0-96.0) Mean Corpuscular Hemoglobin 29.4 pg (26.0-33.0) Mean Corpuscular Hemoglobin Concent 32.8 g/dL (32.0-36.0) Red Cell Distribution Width 14.2 % (11.5-14.5) Platelet Count 227 K/uL (150-450) Mean Platelet Volume 8.0 fL (7.2-11.1) Neutrophils (%) (Auto) 76.6 % (39.4-72.5) Lymphocytes (%) (Auto) 14.4 % (17.6-49.6) Monocytes (%) (Auto) 7.3 % (4.1-12.4) Eosinophils (%) (Auto) 1.2 % (0.4-6.7) Basophils (%) (Auto) 0.5 % (0.3-1.4) Nucleated RBC Relative Count (auto) 0.1 /100WBC Neutrophils # (Auto) 4.4 K/uL (2.0-7.4) Lymphocytes # (Auto) 0.8 K/uL (1.3-3.6) Monocytes # (Auto) 0.4 K/uL (0.3-1.0) Eosinophils # (Auto) 0.1 K/uL (0.0-0.5) Basophils # (Auto) 0.0 K/uL (0.0-0.1) Nucleated RBC Absolute Count (auto) 0.01 K/uL Peripheral Blood Smear No Y/N D-Dimer Quantitative (PE/DVT) 1.97 ug/ml (0-0.50) Glomerular Filtration Rate Calc 36.0 Calcium Level 9.8 mg/dl (8.4-10.2) Total Bilirubin 0.2 mg/dl (0.2-1.3) Aspartate Amino Transf (AST/SGOT) 26 U/L (0-35) Alanine Aminotransferase (ALT/SGPT) 18 U/L (0-56) Alkaline Phosphatase 54 U/L (0-126) Troponin I < 0.012 ng/ml Total Protein 6.6 g/dl (6.3-8.2) Albumin 4.2 g/dl (3.5-5.0) Urine Color Yellow Urine Clarity Slightly-cloudy Urine pH 6.0 pH (4.8-9.5) Urine Specific [place] 1.036 Urine Protein Negative mg/dL (NEGATIVE) Urine Glucose (UA) Negative mg/dL (NEGATIVE) Urine Ketones Negative mg/dL (NEGATIVE) Urine Blood Negative (NEGATIVE) Urine Nitrite Negative (NEGATIVE) Urine Bilirubin Negative (NEGATIVE) Urine Urobilinogen Negative mg/dL (0.2-1.9) Urine Leukocyte Esterase Negative (NEGATIVE) Urine RBC <1 /HPF (0-2/HPF) Urine WBC <1 /HPF (0-5/HPF) Urine Squamous Epithelial Cells None /LPF (NONE-FEW) Urine Bacteria Negative /HPF (NONE-FEW) Urine Mucus None /HPF (NONE-FEW) Coagulation Test 06/22/18 11:50 D-Dimer Quantitative (PE/DVT) 1.97 ug/ml Urinalysis Test 06/22/18 13:05 Urine Color Yellow Urine Clarity Slightly-cloudy Urine pH 6.0 pH (4.8-9.5) Urine Specific [place] 1.036 Urine Protein Negative mg/dL (NEGATIVE) Urine Glucose (UA) Negative mg/dL (NEGATIVE) Urine Ketones Negative mg/dL (NEGATIVE) Urine Blood Negative (NEGATIVE) Urine Nitrite Negative (NEGATIVE) Urine Bilirubin Negative (NEGATIVE) Urine Urobilinogen Negative mg/dL (0.2-1.9) Urine Leukocyte Esterase Negative (NEGATIVE) Urine RBC <1 /HPF (0-2/HPF) Urine WBC <1 /HPF (0-5/HPF) Urine Squamous Epithelial Cells None /LPF (NONE-FEW) Urine Bacteria Negative /HPF (NONE-FEW) Urine Mucus None /HPF (NONE-FEW) ED Course/Re-evaluation ED Course ED course 9-year-old female comes in today with vague nonspecific upper epigastric discomfort concerning management harshness a long history of esophageal reflux issues and this is exactly similar to that however treated as a cardiac complaint EKG elevated d-dimer negative CT angiogram for PE does have some small pleural effusions but nothing clinically significant troponins cardiac markers all negative patient is asymptomatic and will be discharge diagnosis reflux Decision to Disposition Date: Jun 22, 2018 Decision to Disposition Time: 13:34 Depart Departure Latest Vital Signs Vital Signs Date Time Temp Pulse Resp B/P (MAP) Pulse Ox O2 Delivery O2 Flow Rate FiO2 06/22/18 12:32 59 98 06/22/18 12:30 145/57 (86) 06/22/18 11:47 0 06/22/18 11:43 2.0 06/22/18 11:38 98.1 Room Air Impression: Primary Impression: GERD (gastroesophageal reflux disease) Condition: Improved Disposition: HOME OR SELF-CARE Referrals: RAMOS HERNANDEZ MD (PCP) 5 Days Patient Instructions: Gastroesophageal Reflux Disease (DC) ELOY RODRIGUEZ MD Jun 22, 2018 11:50
--- NOTE | 2018-06-22 11:52 | EKG ---
FACILITY: [facility] PATIENT NAME: BRIE AADMES : [id number] MR: [id number] V: [id number] EXAM DATE: ORDERING PHYSICIAN: ELOY RODRIGUEZ TECHNOLOGIST: IRON Test Reason : CP Blood Pressure : / mmHG Vent. Rate : 058 BPM Atrial Rate : 058 BPM P-R Int : 190 ms QRS Dur : 066 ms QT Int : 434 ms P-R-T Axes : 072 015 054 degrees QTc Int : 426 ms Sinus bradycardia Low voltage QRS Borderline ECG When compared with ECG of 13-APR-2018 10:43, Nonspecific T wave abnormality now evident in Anterior leads Confirmed by Dale Camarillo ([id number]) on 06/22/2018 3:10:50 PM Referred By: MICHAEL Confirmed By:Dale Garcia
[2018-06-22] MEDS ORDERED: ASPIRIN 81 MG CHEW ONE ×2 (12:05)
[2018-06-22 12:06] LABS: PLATELET COUNT, AUTOMATED 227 K/uL (150-450)
[2018-06-22] MEDS ORDERED: FURO20TA19 PO (12:10)
--- NOTE | 2018-06-22 12:21 | RADIOLOGY IMAGING REPORT ---
FACILITY: [facility] - [place] PATIENT NAME: Lizabeth Whiting : 1935 MR: [id number] V: [id number] EXAM DATE: ORDERING PHYSICIAN: ELOY RODRIGUEZ TECHNOLOGIST: Location: [facility] [place] Patient: Lizabeth Whiting : 1935 Visit/Account:[id number] Date of Sevice: 06/22/2018 2 VIEWS CHEST INDICATION: Chest pain COMPARISON: May 10, 2018. FINDINGS: Heart size within normal limits. Calcification within the aortic knob. There is no focal infiltrate or lobar consolidation. Hyperinflation the lungs with chronic intersti tial opacities. Small/moderate left pleural effusion with adjacent atelectasis, not significantly changed since prior exam. No visualized right pleural effusion. Partial visualization of lumbar fusion hardware. Surgical clips project of the right axilla. IMPRESSION: 1. No acute cardiopulmonary process. 2. Small/moderate left pleural effusion which is grossly unchanged with adjacent atelectasis. 3. Previously seen right pleural effusion has either resolved or decreased in size. Report Dictated By: Brandon Smith MD at 06/22/2018 12:15 PM Report E-Signed By: Brandon Smith MD at 06/22/2018 12:17 PM WSN:[email or web address]
--- NOTE | 2018-06-22 13:21 | RADIOLOGY IMAGING REPORT ---
FAC[place] [facility] [place] PATIENT NAME: Lizabeth Whiting : 1935 MR: [id number] V: [id number] EXAM DATE: ORDERING PHYSICIAN: ELOY RODRIGUEZ TECHNOLOGIST: Location: [facility] [place] Patient: Lizabeth Whiting : 1935 Visit/Account:[id number] Date of Sevice: 06/22/2018 EXAMINATION: CTA of the chest with IV contrast HISTORY: Chest pain. Dizziness. TECHNIQUE: Pulmonary embolus protocol - Thin axial CT images of the chest were obtained with IV con trast during maximal pulmonary arterial opacification. Reconstruction of the source data includes mul tiplanar 2D coronal and sagittal reconstructed images, and 3D coronal and sagittal MIP images. Repres entative images have been stored on PACS. One of the following dose optimization techniques was utilized in the performance of this exam: Autom ated exposure control; adjustment of the mA and/or kV according to the patient's size; or use of an i terative reconstruction technique. Specific details can be referenced in the facility's radiology C T exam operational policy. Contrast: 75 mL of IV Isovue-370. COMPARISON: None. FINDINGS: Pulmonary arteries: The pulmonary arteries are well opacified, without suspicious filling defect. Heart, aorta, and great vessels: Normal caliber thoracic aorta, without aneurysm or dissection. Vas cular calcifications, including coronary artery calcifications. Normal heart size. No pericardial ef fusion. Lungs and pleura: There is a small layering left pleural effusion with adjacent atelectasis in the p osterior left lower lobe. Minimal layering right pleural fluid. Moderate changes of centrilobular e mphysema bilaterally. No suspicious focal consolidation. No pneumothorax. The central airways are patent. Mediastinum and breanna: Negative. Visualized upper abdomen: Unremarkable. Chest wall: Surgical changes medial right breast with surgical clips along the right axilla. Bones: No acute osseous findings in the chest. Scattered degenerative changes along the thoracic sp ine. There are old fractures of the lateral left third through sixth ribs. Partially visualized fus ion hardware along the lumbar spine. IMPRESSION: 1. No evidence of pulmonary embolism. 2. Small layering left pleural effusion with adjacent atelectasis in the left lung base. Trace righ t pleural effusion. 3. Moderate pulmonary emphysema. Report Dictated By: Florian Nunn MD at 06/22/2018 1:08 PM Report E-Signed By: Florian Nunn MD at 06/22/2018 1:17 PM WSN:[email or web address]
[2018-06-22 13:30] VITALS: BP 141/63
== END 2018-06-22 13:50 | disposition home or self-care (01) ==
LOC: ER 11:41
DX: K21.9 Gastro-esophageal reflux disease without esophagitis (principal)
CPT/HCPCS: 71046; 71275; 81001; 84484; 85025; 85379; 93005; 99284; A4353; A9270; 82040; 82247; 82310; 82374; 82435; 82565; 82947; 84075; 84132; 84155; 84295; 84450; 84460; 84520; Q9967

== ENCOUNTER 2018-09-03 15:58 | Outpatient (RCR) | payer MEDICARE ==
[~2018-09-03 15:58] MED LIST changes: +FURO20TA19 PO
--- NOTE | 2018-09-04 08:24 | PT INITIAL EVALUATION ---
MEDICAL DIAGNOSIS: hip pain, bilateral, lumbar spine pain, and dizziness TREATMENT DIAGNOSIS: same DATE OF ONSET: 09/04/15 SUBJECTIVE: Lizabeth Whiting presents to physical therapy with complaints of low back pain with radiating pain down to her B knees and inner thigh pain resulting in decreased standing and walking endurance.She rates her pain to be anywhere from 6-10/10 depending on what she is doing at the moment. She reports that she has a history of post polio syndrome, lumbar fusion (L1-L5), R knee replaced, R hip replaced, and broke L hip resulting in pins. She reports that she went into septic shock one year ago resulting in decreased strength and endurance. She reports that she has had this pain for many years and over the year she has been treated with dry needling and ultrasound with temporarily relief. Furthermore, her daughter reports that she massages her hips, inner thighs, and low back regions which she states that it helps for a while. Her daughter also reports big bumps or restrictions on the B inner thighs that do not seem to change other than they become less painful after the massage. She reports that she gets temporarily relief from the massage and ice or heat packs. Furthermore, she reports that standing, stopping, and walking make her pain worse. She reports that her goals would be decrease pain with standing, walking, and sewing so that she can get back to those activities. REHAB PROBLEM LIST: Increased Pain Decreased ROM Decreased Strength Decreased Endurance Decreased Balance Decreased Function Decreased Mobility Decreased Gait PREVIOUS MEDICAL HISTORY: See EMR OCCUPATION: Retired OBJECTIVE: Posture: She demonstrates minimal forward head, thoracic kyphosis, decreased lumbar lordosis. ROM: Trunk AROM: flexion: minimal restriction with empty end feel. extension: major restriction with painful end feel. R/L sidegliding not tested today Strength: R hip flexion, abduction, extension, R knee flexion and extension, R ankle DF and PF: 4/5. L hip flexion, abduction, extension, L knee flexion and extension, L ankle DF and PF: 4+/5. Palpation: TTP: central L4 and L 5 with radiating pain to her L PSIS to L ASIS, adductor genie B Sensation: did not test will test next session Special Tests: Repeated flexion: increased pain during the movement and peripheralized pain down the B LE's. Repeated extension: increased pain during the movement and centralized pain in her low back region. Mobility: Modified independent Gait: She demonstrated the following gait mechanics for the few feet that she ambulated today: antalgic gait, decreased velocity, decreased B step lengths, decreased B step clearance, hesitant gait, and increased pain in standing. Balance: standing balance with NBOS and eyes opened or closed: minimal movement, did not test further: will test in the future ASSESSMENT: Lizabeth will benefit from skilled physical therapy to address the listed impairments to improve function and QOL. Short Term Goals 2 weeks: Pt will demonstrate directional preference to reduce pain and improve standing and walking endurance to improve function and QOL. 6 weeks: Pt will demonstrate significant improvements in core and B LE strength to improve function and QOL. Patient's Goals be able to stand longer and walker further with less pain` PLAN: Patient to be seen for Manual Therapy/STM/MET Strengthening/condition Ice/Heat Range of Motion Spinal Stabilization Ultrasound Work Hardening/Cond Stretching Iontophoresis Neuromuscular Re-ed Closed Chain Program Electrical Stim Posture/Body mechanics Gait Trg/Balance Trg Home Exercise Program Therapeutic Activities 2x/Week for 6 Weeks If you have any questions, comments, or concerns about this report or plan, please contact me at . Thank you, Savage Santana, PT, DPT [facility]
[2018-09-04] MEDS ORDERED: GABA-533 PO (08:26)
--- NOTE | 2018-09-11 13:04 | PT PLAN OF CARE ---
Physician: Brayan Suero MD Patient is being seen: examination only Therapist: Savage Santana, PT, DPT Medical Diagnosis: hip pain, bilateral, lumbar spine pain, and dizziness Treatment Diagnosis: same Date of Onset: 09/04/15 Date of Initial Evaluation: 09/03/18 Date patient was last seen: 09/11/18 Number of treatments: Number of cancellations/No shows: 1 INTERVENTIONS: Manual Therapy/STM/MET Strengthening/condition Ice/Heat Range of Motion Spinal Stabilization Ultrasound Work Hardening/Cond Stretching Iontophoresis Neuromuscular Re-ed Closed Chain Program Electrical Stim Posture/Body mechanics Gait Trg/Balance Trg Home Exercise Program Therapeutic Activities GOALS: 2 weeks: Pt will demonstrate directional preference to reduce pain and improve standing and walking endurance to improve function and QOL. 6 weeks: Pt will demonstrate significant improvements in core and B LE strength to improve function and QOL. PATIENT'S GOAL: be able to stand longer and walker further with less pain` Status of Patient's Goals: unknown Patient Compliance: Poor Prognosis: Good Reasons for continuing therapy: This is a discharge note for Lizabeth Whiting. Her daughter called and cancelled all of her appointments and would like to go a different direction with everything. As a result, she will be discharged from PT. Posture: She demonstrates minimal forward head, thoracic kyphosis, decreased lumbar lordosis. ROM: Trunk AROM: flexion: minimal restriction with empty end feel. extension: major restriction with painful end feel. R/L sidegliding not tested today Strength: R hip flexion, abduction, extension, R knee flexion and extension, R ankle DF and PF: 4/5. L hip flexion, abduction, extension, L knee flexion and extension, L ankle DF and PF: 4+/5. Palpation: TTP: central L4 and L 5 with radiating pain to her L PSIS to L ASIS, adductor genie B Special Tests: Repeated flexion: increased pain during the movement and peripheralized pain down the B LE's. Repeated extension: increased pain during the movement and centralized pain in her low back region. Mobility: Modified independent If you have any questions, please contact me at [phone]. Thank you, Savage Santana, PT, DPT [facility]
== END 2018-09-03 18:00 | disposition home or self-care (01) ==
LOC: PT 15:58
PROVIDERS: ATTEND Internal Medicine
DX: R53.1 Weakness (principal); M25.551 Pain in right hip; R42 Dizziness and giddiness; M54.16 Radiculopathy, lumbar region; Z98.1 Arthrodesis status
CPT/HCPCS: 97162